=== PATIENT | female | born 1980 | race Caucasian/White ===

== ENCOUNTER 2017-09-12 17:33 | Inpatient (IN) | payer MEDICAID ==
--- NOTE | 2017-09-12 18:42 | C.PDOC ---
History Of Present Illness 36 y/o female presents to ED for evaluation of hearing voices since yesterday. She states voices are telling her she "belongs in [place] not in [place]". She also reports nausea and vomiting since this morning. She thinks she may have missed her medications today. Denies SI, HI, abdominal pain, diarrhea, urinary symptoms , or any other physical complaints. Time Seen by Provider: 09/12/17 18:17 Chief Complaint (Nursing): Psychiatric Evaluation History Per: Patient History/Exam Limitations: no limitations Past Medical History Reviewed: Historical Data, Nursing Documentation, Vital Signs Vital Signs: Last Vital Signs Temp 98.7 F 09/12/17 17:51 Pulse 70 09/12/17 17:51 Resp 16 09/12/17 17:51 BP 136/81 09/12/17 17:51 Pulse Ox 100 09/12/17 18:44 Family History: States: Unknown Family Hx - Social History Hx Alcohol Use: No Hx Substance Use: No Review Of Systems Except As Marked, All Systems Reviewed And Found Negative. Constitutional: Negative for: Fever, Chills Gastrointestinal: Positive for: Nausea, Vomiting. Negative for: Abdominal Pain , Diarrhea, Hematemesis Genitourinary: Negative for: Dysuria, Frequency, Hematuria Psych: Positive for: Other (hearing voices). Negative for: Suicidal ideation Physical Exam - Physical Exam Appears: Non-toxic, No Acute Distress Skin: Normal Color, Warm, Dry Head: Atraumatic, Normacephalic Eye(s): bilateral: Normal Inspection Oral Mucosa: Moist Neck: Normal ROM, Supple Chest: Symmetrical Cardiovascular: Rhythm Regular Respiratory: Normal Breath Sounds, No Rales, No Rhonchi, No Wheezing Gastrointestinal/Abdominal: Soft, No Tenderness Extremity: Normal ROM Neurological/Psych: Oriented x3, Normal Speech ED Course And Treatment O2 Sat by Pulse Oximetry: 100 Medical Decision Making Medical Decision Making: Impression: Hallucinations, vomiting Plan: Blood work Urinalysis Zofran 190 - case s/o to DR. Bagley pending labs, reevaluation and disposition Disposition - Disposition Disposition Time: 19:00 Condition: STABLE Forms: [facility] (Maori) - Clinical Impression Clinical Impression: Hallucination, Vomiting - Scribe Statement The provider has reviewed the documentation as recorded by the Scribe KP All medical record entries made by the Scribe were at my direction and personally dictated by me. I have reviewed the chart and agree that the record accurately reflects my personal performance of the history, physical exam, medical decision making, and the department course for this patient. I have also personally directed, reviewed, and agree with the discharge instructions and disposition. Physician Patient Turnover Patient Signed Over To: Cipriano Bagley DO Handoff Comments: labs, reevaluation and disposition
[2017-09-12 18:52] LABS: BASO % 0.4 % (0.0-2.0); EOS # 0.1 K/uL (0.0-0.7); EOS % 1.1 % (0.0-4.0); HEMOGLOBIN 12.4 g/dL (11.0-16.0); LYMPH # 1.7 K/uL (1.0-4.3); LYMPH % 28.4 % (20.0-40.0); MEAN CELL VOLUME 83.3 fL (81.0-99.0); MEAN CORPUSCULAR HEMOGLOBIN 28.7 pg (27.0-31.0); MEAN CORPUSCULAR HGB CONC 34.4 g/dL (33.0-37.0); MEAN PLATELET VOLUME 6.6 fL (7.2-11.7); MONO # 0.3 K/uL (0.0-0.8); MONO % 5.7 % (0.0-10.0); NEUT # 3.9 K/uL (1.8-7.0); NEUT % 64.4 % (50.0-75.0); NRBC % 0.1 % (0.0-2.0); RBC 4.32 Mil/uL (3.80-5.20); RED CELL DISTRIBUTION WIDTH 12.1 % (11.5-14.5)
[2017-09-12 18:54] LABS: SQUAMOUS EPITHIAL < 1 /hpf (0-5); URINE BACTERIA RARE (<OCC); URINE BILIRUBIN NEGATIVE (NEGATIVE); URINE BLOOD 3+ (NEGATIVE); URINE CLARITY Clear (Clear); URINE COLOR Colorless (YELLOW); URINE GLUCOSE (UA) NORMAL (Normal); URINE LEUKOCYTE ESTERASE NEG Leu/uL (Negative); URINE PROTEIN NEGATIVE (NEGATIVE); URINE UROBILINOGEN NORMAL mg/dL (0.2-1.0)
[2017-09-12 19:08] LABS: BARBITURATES, UR NEGATIVE (NEGATIVE); BENZODIAZEPINES, UR NEGATIVE (NEGATIVE); OPIATES, UR NEGATIVE (NEGATIVE); PHENCYCLIDINE, UR NEGATIVE (NEGATIVE)
[2017-09-12 19:13] LABS: ALB/GLOB RATIO 1.7 (1.0-2.1); ALBUMIN 4.4 g/dL (3.5-5.0); ALT/SGPT 45 U/L (9-52); AST/SGOT 41 U/L (14-36); BLOOD UREA NITROGEN 8 mg/dL (7-17); CALCIUM 9.3 mg/dl (8.6-10.4); GFR AFRICAN-AMERICAN > 60; GFR NON-AFRICAN AMERICAN > 60; LIPASE 84 U/L (23-300)
[2017-09-12] MEDS ORDERED: Sodium Chloride 0.9% 1,000 ML IV STA (19:46)
--- NOTE | 2017-09-12 23:48 | PCM.BM ---
<Kayleigh Fairchild - Last Filed: 09/12/17 23:45> Treatment Plan Problems - Problems identified on initial assessmt Auditive hallucination Date Initiated: 09/12/17 Time Initiated: 11:35 Assessment reference: NA Status: Active (pt. c/o hearing voices.) depression Date Initiated: 09/12/17 Time Initiated: 11:35 Assessment reference: NA Status: Active Treatment assets and liabiliti Patient Assests: self-reliant, negotiates basic needs (pt. undertood the adminsion) Patient Liabilities: live alone (her own apt.), medical problems (N/V) - Milieu Protocol Maintain good personal hygiene: daily Encourage regular showers, daily Remind patient to perform daily oral care, every shift Assist patient to perform ADL's Maintain personal safety: every shift Educate patient to report safety concerns to staff, every shift Monitor environment for contraband/sharps Medication safety: Monitor for expected outcome, potential side effects: every shift, Assess barriers to learning: every shift, Assess readiness for medication education: every shift <Velma Gongora - Last Filed: 09/13/17 15:08> Family Contact Family contact: Patient agrees to contact - Goals for Treatment Patient goals for treatment: "I want to return to my doctor." Discharge/Continuing Care - Education Needs Education Needs: Patient Medication, Patient Diagnosis/Disease Process, Patient Coping Skills, Patient Placement options, Patient Community resources - Discharge Discharge Criteria: Free of Suicidal thoughts, Normal sleep pattern, Ability to care for self, Reduction of target symptoms Discharge to:: Home, Other - Treatment Team Participation Discussed with Family/SO: No Was Patient/Family/SO present at Treatment Team Meeting: Yes <Benitez Javier - Last Filed: 09/13/17 23:44> - Diagnosis (1) Schizoaffective disorder Status: Acute Interventions: 09/13/17 23:44 * Assess/adjust medications daily and /or as needed * Discuss risks, benefits, sided effects and alternatives of medications * See patient on an individual basis 7x/week to assess level of delusional thoughts/ideation *
--- NOTE | 2017-09-13 11:38 | PCM.PSYCH ---
Initial Psychiatric Evaluation - Initial Psychiatric Evaluation Type of Admission: Voluntary Legal Status: Capacity Chief Complaint (in patient's own words): "I was hearing voices" History of Present Illness and Precipitating Events: HPI: Patient is a 36 year old single female with history of frontal tumor who was admitted yesterday for complaints of hearing her ex-boyfriend's voice telling her to "jump out the window" and that she "belongs in [place]." She states she called her mother who is currently in [place] who told her to come in the ED for evaluation. She states she usually talks to someone when she hears voices. She admits she might have missed her medication for 3 days. She denies feeling anxious or depressed. She denies suicidal or homicidal thoughts currently. She has a history of suicidal attempts in the past, last attempt in 2007. She denies feeling of paranoia. She denies visual hallucinations. She admits she has racing thoughts where she feels like she has to finish multiple tasks, however she states that she usually ignores these thoughts. She states she first started hearing voices 10 years ago. Psychiatrist: Dr. Anand at [facility] Past psychiatric admissions: Admitted at [facility] and [facility] PMH: unspecified brain tumor, schizoaffective disorder PSH: removal of brain tumor, 2016 Family hx: brother diagnosed with schizophrenia Social hx: Lives by herself in [place] in a disabled building. (+) smokes cigarettes. Denies alcohol use, Denies illicit drug use, including marijuana, cocaine, heroin. Home Meds: Cabergoline, Seroquel 75mg, Cogentin, Fluphenazine 10mg x4, Zoloft 100mg Allergies: Haloperidol, [place], Ziprasidone Current Medications: Active Medications Generic Name Dose Route Start Last Admin Trade Name Freq PRN Reason Stop Dose Admin Benztropine Mesylate 1 mg 09/13/17 11:15 09/13/17 11:34 Cogentin PO 1 mg BID FELICITAS Administration Diphenhydramine HCl 50 mg 09/13/17 00:11 Benadryl PO HS PRN Insomnia Fluphenazine HCl 10 mg 09/13/17 11:15 Prolixin PO BID FELICITAS Nicotine 1 patch 09/13/17 11:15 09/13/17 11:35 Nicoderm Cq TD 1 patch DAILY FELICITAS Administration Pneumococcal Polyvalent Vaccine 0.5 ml 09/15/17 10:00 Pneumovax 23 Vaccine IM 09/15/17 10:01 .ONCE ONE Pneumococcal Polyvalent Vaccine 0.5 ml 09/16/17 10:00 Pneumovax 23 Vaccine IM 09/16/17 10:01 .ONCE ONE Quetiapine Fumarate 100 mg 09/13/17 22:00 Seroquel PO HS [facility] Past Psychiatric History - Past Psychiatric History Previous Treatment History: Inpatient At [facility] hospital: [facility] Pertinent Medical Hx (Current Medical&Sleep Prob, Allergies): Allergies Allergy/AdvReac Type Severity Reaction Status Date / Time haloperidol [From Haldol] Allergy Verified 09/12/17 17:49 lithium Allergy Verified 09/12/17 17:49 ziprasidone [From Geodon] Allergy Verified 09/12/17 17:49 Benztropine [Benztropine Mesylate] 1 mg PO DAILY 09/12/17 Clonazepam 1 mg PO DAILY 09/12/17 QUEtiapine [SEROquel] 75 mg PO DAILY 09/12/17 Sertraline HCl [Zoloft] 100 mg PO DAILY 09/12/17 fluPHENAZine [Fluphenazine HCl] 40 mg PO DAILY 09/12/17 Review of Systems - Psychiatric Psychiatric: Auditory Hallucinations. absent: Anxiety, Change in Appetite, Depression, Homicidal Ideation, Paranoia, Suicidal Ideation, Visual Hallucinations, Tactile Hallucinations Mental Status Examination - Personal Presentation Personal Presentation: Looks stated age - Affect Affect: Constricted - Motor Activity Motor Activity: Calm - Reliability in Providing Information Reliability in Providing Information: Fair - Speech Speech: Organized, Relevant, Coherent - Mood Mood: Neutral - Formal Thought Process Formal Thought Process: Hallucinations ([place] voices yesterday) - Hallucinations/Delusions Hallucinations: Auditory Additional comments: No delusions of grandeur No persecutory delusions - Obsessions/Compulsions Obsessions: No Compulsions: No - Cognitive Functions Orientation: Person, Place, Situation Sensorium: Alert Attention/Concentration: Attentive Estimate of Intelligence: Average Judgement: Intact, as evidence by: Insight regarding need for hospitalization Memory: Recent intact, as evidence by: Ability to recall events of the day - Risk Risk: Diminished functioning - Strength & Assets Inventory Strength & Assets Inventory: Cooperative - Limitations Limitations: Living alone DSM 5 DX - DSM 5 DSM 5 Diagnosis: Chronic schizophrenia, acute exacerbation Tobacco use disorder - Recommended/Plan of Treatment Treatment Recommendations and Plan of Treatment: Prolixin 10mg BID Benadryl 50mg PO HS PRN Cogentin 1mg PO BID Seroquel 100mg PO HS Nicotine patch Cabergoline to be brought in from home by family Compliance with medications encouraged. Smoking cessation encouraged. All risks, benefits and alternatives of medications discussed, patient agreed and expressed understanding. Attend groups and activities Support and psychoeducation provided After care planning by director of social work 33 mins Case discussed with Dr. Yaya Arteaga, PGY1 - Smoking Cessation Smoking Cessation Initiated: Yes
[2017-09-13] MEDS: guaiFENesin 200 mg/10 ml Syrup UD PO PRN (19:10)
[2017-09-13] MEDS: guaiFENesin DM 200 mg-20 mg/10 ml UD PO PRN (21:33)
--- NOTE | 2017-09-14 11:27 | PCM.PYCHPN ---
Psychiatric Progress Note - Psychiatric Progress Note Patient seen today, length of contact: 16 mins Patient Chief Complaint: "I'm still hearing voices" Problems Identified/Issues Discussed: Patient seen and evaluated. Chart reviewed, case discussed with staff. Patient states she was able to sleep well. She states she heard her ex-boyfriend's voice last night saying, "You belong in [place]" when she was trying to go to sleep last night. She states she feels a little anxious, however denies feeling depression. She denies suicidal or homicidal thoughts. She denies experiencing visual hallucinations. She denies feeling paranoid. Supportive therapy and psychoeducation provided. Patient is compliant with medications, no adverse effects noted. Patient requires more time to stabilize. Medication Change: Yes Medical Record Reviewed: Yes Mental Status Examination - Cognitive Function Orientation: Person, Place, Situation Memory: Intact Attention: WNL Concentration: WNL Association: WN Fund of Knowledge: WN - Mood Mood: Anxious - Affect Affect: Other Additional comments: Intense affect, asks repetitive questions about her medications - Speech Speech: Loud - Formal Thought Process Formal Thought Process: Hallucinations ([place] voices last night) Additional comments: No paranoia no delusions - Suicidal Ideation Suicidal Ideation: No - Homicidal Ideation Homicidal Ideation: No Goal/Treatment Plan - Goal/Treatment Plan Need for Continued Stay: Discharge may exacerbated symptoms Progress Toward Problem(s) and Goals/Treatment Plan: Prolixin 10mg TID Benadryl 50mg PO HS PRN Cogentin 1mg PO BID Gabapentin 100mg PO TID Seroquel 100mg PO HS Zoloft 50mg PO daily Nicotine patch Cabergoline to be brought in from home by family Compliance with medications encouraged. Smoking cessation encouraged. Nicotine patch All risks, benefits and alternatives of medications discussed, patient agreed and expressed understanding. Attend groups and activities Support and psychoeducation provided After care planning by social media executive Case discussed with Dr. Yaya Arteaga, PGY1
[2017-09-14] MEDS: guaiFENesin 200 mg/10 ml Syrup UD PO PRN (17:11)
[2017-09-14] MEDS ORDERED: Patient's Own Medication - Tablet/Capusle PO ONE (22:00)
[2017-09-14] MEDS: guaiFENesin DM 200 mg-20 mg/10 ml UD PO PRN (22:57)
[2017-09-15 06:04] VITALS: RESP 18
[2017-09-15] MEDS ORDERED: Pneumococcal 23-Valent Vaccine IM ONE (10:00)
--- NOTE | 2017-09-15 11:37 | PCM.PYCHPN ---
Psychiatric Progress Note - Psychiatric Progress Note Patient seen today, length of contact: 17 mins Patient Chief Complaint: "I didn't sleep well last night" Problems Identified/Issues Discussed: Patient seen and evaluated. Chart reviewed, case discussed with staff. Patient states she was not able to sleep well. She states she continues to hear her ex- boyfriend's voice saying, "You belong in [place]" when she is alone. She states she feels a little anxious and "hyper", however denies feeling depression. She denies suicidal or homicidal thoughts. She denies experiencing visual hallucinations. She denies feeling paranoid. She states her appetite is better. Supportive therapy and psychoeducation provided. Patient is compliant with medications, no adverse effects noted. Patient requires more time to stabilize. Medication Change: Yes Medical Record Reviewed: Yes Mental Status Examination - Cognitive Function Orientation: Person, Place, Situation Memory: Intact Attention: WNL Concentration: WNL Association: WN Fund of Knowledge: WN - Mood Mood: Anxious - Affect Affect: Other (Intense affect) - Speech Speech: Loud - Formal Thought Process Formal Thought Process: Hallucinations (Continues to hear her ex-boyfriend's voice) - Suicidal Ideation Suicidal Ideation: No - Homicidal Ideation Homicidal Ideation: No Goal/Treatment Plan - Goal/Treatment Plan Need for Continued Stay: Discharge may exacerbated symptoms Progress Toward Problem(s) and Goals/Treatment Plan: Prolixin 10mg TID Benadryl 50mg PO HS PRN Cogentin 1mg PO BID Gabapentin 100mg PO TID Seroquel 100mg PO HS Zoloft 50mg PO daily Nicotine patch Cabergoline to be brought in from home by family Compliance with medications encouraged. Smoking cessation encouraged. Nicotine patch multivitamin daily All risks, benefits and alternatives of medications discussed, patient agreed and expressed understanding. Attend groups and activities Support and psychoeducation provided After care planning by dialysis social worker Case discussed with Dr. Yaya Arteaga, PGY1
[2017-09-15] MEDS: guaiFENesin DM 200 mg-20 mg/10 ml UD PO PRN (21:52)
[2017-09-16] MEDS ORDERED: Multiple Vitamins Tab PO SCH (10:00)
[2017-09-16] MEDS ORDERED: Pneumococcal 23-Valent Vaccine IM ONE (10:00)
[2017-09-16 10:04] LABS: ALB/GLOB RATIO 1.5 (1.0-2.1); ALBUMIN 4.3 g/dL (3.5-5.0); ALT/SGPT 41 U/L (9-52); AST/SGOT 34 U/L (14-36); BLOOD UREA NITROGEN 15 mg/dL (7-17); CALCIUM 9.4 mg/dl (8.6-10.4); GFR AFRICAN-AMERICAN > 60; GFR NON-AFRICAN AMERICAN > 60
[2017-09-16] MEDS: guaiFENesin DM 200 mg-20 mg/10 ml UD PO PRN (10:44)
[2017-09-16] MEDS ORDERED: guaiFENesin 100 mg/5 ml Syrup UD PO PRN (12:09)
--- NOTE | 2017-09-16 12:51 | PCM.PYCHPN ---
Psychiatric Progress Note - Psychiatric Progress Note Patient seen today, length of contact: 16 min Patient Chief Complaint: "I cough a lot but I don't hear as much voices" Problems Identified/Issues Discussed: The pt is seen, chart reviewed, case discussed with staff. The pt is compliant with medications and reports no side-effects. Symptoms are improving but needs more time to stabilize. After care discussed, support and psychoeducation given. Medication Change: Yes (detox changes daily) Medical Record Reviewed: Yes Mental Status Examination - Cognitive Function Orientation: Person, Place, Situation Memory: Intact Attention: WNL Concentration: WNL Association: WNL Fund of Knowledge: WNL - Mood Mood: Anxious - Affect Affect: Constricted - Speech Speech: Appropriate - Formal Thought Process Formal Thought Process: Hallucinations (less) - Suicidal Ideation Suicidal Ideation: No - Homicidal Ideation Homicidal Ideation: No Goal/Treatment Plan - Goal/Treatment Plan Need for Continued Stay: Discharge may exacerbated symptoms, Severe functional impairment Progress Toward Problem(s) and Goals/Treatment Plan: Continue medications Support and psychoeducation daily Attend groups and activities daily After care planning by SOPHIE sung Estimated Date of D/C: 09/17/17
--- NOTE | 2017-09-16 13:48 | RAD ---
Date of service: 09/16/2017 HISTORY: Persistent cough COMPARISON: No prior. TECHNIQUE: Chest PA and lateral FINDINGS: LUNGS: No active pulmonary disease. PLEURA: No significant pleural effusion identified. No pneumothorax apparent. CARDIOVASCULAR: Normal. OSSEOUS STRUCTURES: No significant abnormalities. VISUALIZED UPPER ABDOMEN: Normal. OTHER FINDINGS: None. IMPRESSION: No active disease.
[2017-09-16 16:08] VITALS: O2SAT 100
[2017-09-16] MEDS ORDERED: Aluminum Hydroxide/Magnesium Hydroxide Susp (30 mL) PO PRN (16:23)
[2017-09-17 06:28] VITALS: TEMP 97.7
[2017-09-17 08:49] VITALS: BP 125/80; PULSE 71
--- NOTE | 2017-09-17 10:53 | PCM.PYCHDC ---
Mental Status Examination - Mental Status Examination Orientation: Person, Place, Situation, Time Memory: Intact Mood: Neutral Affect: Constricted Speech: Soft Attention: WNL Concentration: WNL Association: WNL Fund of Knowledge: WNL Formal Thought Process: No Impairment Description of patient's judgement and insight: good, fair Psychotic Thoughts and Behaviors: denies any AVH Suicidal Ideation: No Current Homicidal Ideation?: No Discharge Summary - Discharge Note Reason for Hospitalization: HPI: Patient is a 36 year old single female with history of frontal tumor who was admitted yesterday for complaints of hearing her ex-boyfriend's voice telling her to "jump out the window" and that she "belongs in [place]." She states she called her mother who is currently in [place] who told her to come in the ED for evaluation. She states she usually talks to someone when she hears voices. She admits she might have missed her medication for 3 days. She denies feeling anxious or depressed. She denies suicidal or homicidal thoughts currently. She has a history of suicidal attempts in the past, last attempt in 2007. She denies feeling of paranoia. She denies visual hallucinations. She admits she has racing thoughts where she feels like she has to finish multiple tasks, however she states that she usually ignores these thoughts. She states she first started hearing voices 10 years ago. Psychiatrist: Dr. Anand at [facility] Past psychiatric admissions: Admitted at [facility] and [facility] PMH: unspecified brain tumor, schizoaffective disorder PSH: removal of brain tumor, 2016 Family hx: brother diagnosed with schizophrenia Social hx: Lives by herself in [place] in a disabled building. (+) smokes cigarettes. Denies alcohol use, Denies illicit drug use, including marijuana, cocaine, heroin. Home Meds: Cabergoline, Seroquel 75mg, Cogentin, Fluphenazine 10mg x4, Zoloft 100mg Allergies: Haloperidol, [place], Ziprasidone Consultations:: List each consultation separately and include: 1. Reason for request. 2. Findings. 3. Follow-up Summary of Hospital Course include:: 1. Description of specific treatment plan utilized for patients during their course of treatmen. 2. Summarize the time- course for resolution of acute symptoms and/or regressed behaviors. 3. Describe issues identified and worked on during hospitalization. 4. Describe medication utilized. 5. Describe medical problems identified and treated. 6. Reassessment of suicide risk - Final Diagnosis (DSM 5) Condition upon Discharge: FAIR DSM 5: Chronic schizophrenia, acute exacerbation Tobacco use disorder Disposition: HOME/ ROUTINE Prescriptions/Medication Reconciliation: Benztropine [Cogentin] 1 mg PO BID #60 tab fluPHENAZine [Prolixin] 10 mg PO TID #90 tab QUEtiapine [Seroquel] 100 mg PO HS #30 tab Sertraline [Zoloft] 100 mg PO DAILY #30 tab - Smoking Cessation Smoking Cessation Medication prescribed: No - Antipsychotic Medications Pt discharged on 2 or more routine antipsychotic medications: No
[2017-09-17] MEDS ORDERED: Patient's Own Medication - Tablet/Capusle PO ONE (22:00)
== END 2017-09-17 11:45 | disposition home or self-care (01) | DRG 430 ==
LOC: C.ER 17:33 → C.5E 22:10
PROVIDERS: ADMIT Psychiatry & Neurology Psychiatry; ATTEND Psychiatry & Neurology Psychiatry
PROC: GZHZZZZ Group Psychotherapy (ICD-10-PCS; principal; 2017-09-12)
PROC: GZ56ZZZ Individual Psychotherapy, Supportive (ICD-10-PCS; 2017-09-12)
DX: F23 Brief psychotic disorder (principal); F32.9 Major depressive disorder, single episode, unspecified; F17.210 Nicotine dependence, cigarettes, uncomplicated; Z81.8 Family history of other mental and behavioral disorders; Z86.011 Personal history of benign neoplasm of the brain; Z91.5 Personal history of self-harm